=== PATIENT | female | born 1995 | race Caucasian/White ===

== ENCOUNTER 2017-03-15 15:21 | Emergency (ER) | payer OTHER ==
[~2017-03-15] VITALS: Ht 162.6 cm; Wt 54.4 kg
[2017-03-15 15:27] VITALS: BP 115/75
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
[2017-03-15] MEDS ORDERED: LIDOCAINE 1% ***ER ONLY *** 10 MG/ML VIAL INJ ONE (15:35)
[2017-03-15] MEDS ORDERED: LIDOCAINE MPF 1% - **ER/OR** 5 ML ONE ×2 (15:36→15:54)
[2017-03-15] MEDS ORDERED: BACITRACIN OINT 500 UNITS/GM PKT TP ONE (15:54)
--- NOTE | 2017-03-15 16:08 | NUR ---
SUTURE DONE BY DR LÓPEZ;PT TOLERATED WELL PROCEDURE.
--- NOTE | 2017-03-15 16:09 | NUR ---
ANNABEL BENAVIDES AT BEDSIDE.
--- NOTE | 2017-03-15 16:14 | NUR ---
AT BEDSIDE INTERVIEWING PTJosette
[2017-03-15 16:50] VITALS: BP 120/71
--- NOTE | 2017-03-15 16:50 | NUR ---
Patient discharged with v/s stable. Written and verbal after care instructions given and explained. Patient alert, oriented and verbalized understanding of instructions. Ambulatory with steady gait. All questions addressed prior to discharge. ID band removed. Patient advised to follow up with PMD. Rx of NORCO AND MOTRIN given. Patient educated on indication of medication including possible reaction and side effects. Opportunity to ask questions provided and answered.
== END 2017-03-15 16:50 | disposition home or self-care (01) ==
LOC: MED 15:21
DX: S51.812A Laceration without foreign body of left forearm, initial encounter (principal); W54.0XXA Bitten by dog, initial encounter; Y93.89 Activity, other specified; Y92.89 Other specified places as the place of occurrence of the external cause; Y99.8 Other external cause status
CPT/HCPCS: 12002; 90471; 90715; 99283; J2001